=== PATIENT | female | born 1945 | race Caucasian/White ===

== ENCOUNTER → 2016-07-17 | Outpatient (CLI) | payer MEDICARE, OTHER ==
[2016-07-17 12:31] LABS: APPEARANCE,URINE SLIGHTLY-CLOUDY; BILIRUBIN,URINE NEGATIVE (NEGATIVE); GLUCOSE, URINE NEGATIVE (NEGATIVE); KETONES,URINE NEGATIVE (NEGATIVE); LEUKOCYTE ESTERASE,URINE NEGATIVE (NEGATIVE); NITRITE,URINE NEGATIVE (NEGATIVE); PROTEIN,URINE NEGATIVE (NEGATIVE); URINE SPECIFIC GRAVITY 1.009; UROBILINOGEN,URINE NEGATIVE mg/dL (<2.0)
[2016-07-17 13:00] LABS: ABSOLUTE EOSINOPHILS # (AUTO) 0.3 10^3/uL (0.0-0.6); ABSOLUTE LYMPHOCYTES (AUTO) 1.2 10^3/uL (0.5-4.7); ABSOLUTE MONOCYTES (AUTO) 0.7 10^3/uL (0.1-1.4); BASOPHILS % (AUTO) 0.6 % (0-2); EOSINOPHILS % (AUTO) 3.4 % (0-6); HEMATOCRIT 39.7 % (36.0-47.0); HEMOGLOBIN 13.3 g/dL (12.0-15.5); HGB HCT DIFFERENCE 0.2; LYMPHOCYTES % (AUTO) 14.8 % (13-45); MEAN CORPUSCULAR HEMOGLOBIN 30.6 pg (27.0-33.4); MEAN CORPUSCULAR HGB CONC 33.4 g/dL (32.0-36.0); MEAN CORPUSCULAR VOLUME 92 fl (80-97); RED BLOOD COUNT 4.33 10^6/uL (3.72-5.28); RED CELL DISTRIBUTION WIDTH 14.2 % (11.5-14.0); SEGMENTED NEUTROPHILS % (AUTO) 73.2 % (42-78); WHITE BLOOD COUNT 8.2 10^3/uL (4.0-10.5)
[2016-07-17 13:22] LABS: ANION GAP 9 (5-19); BLOOD UREA NITROGEN 26 mg/dL (7-20); CALCIUM 8.8 mg/dL (8.4-10.2); CARBON DIOXIDE 28 mmol/L (22-30); CHLORIDE 91 mmol/L (98-107); GLUCOSE 59 mg/dL (75-110); POTASSIUM 4.4 mmol/L (3.6-5.0); SODIUM 127.6 mmol/L (137-145)
--- NOTE | 2016-07-17 16:57 | EKG REPORT ---
SEVERITY:- ABNORMAL ECG - SINUS RHYTHM NONSPECIFIC INTRAVENTRICULAR CONDUCTION DELAY PROBABLE LEFT VENTRICULAR HYPERTROPHY INFERIOR INFARCT, OLD : Confirmed by: Junie Royal MD 17-Jul-2016 16:57:15
== END ==
LOC: OD 11:16
PROVIDERS: ATTEND Orthopaedic Surgery
DX: Z01.810 Encounter for preprocedural cardiovascular examination (principal); Z01.811 Encounter for preprocedural respiratory examination; Z01.812 Encounter for preprocedural laboratory examination; Z01.818 Encounter for other preprocedural examination
CPT/HCPCS: 36415; 71020; 80048; 81001; 85025; 93005; 93010

== ENCOUNTER → 2016-08-07 | Outpatient (CLI) | payer MEDICARE, OTHER ==
[2016-08-07 11:53] LABS: ANION GAP 12 (5-19); BLOOD UREA NITROGEN 22 mg/dL (7-20); CALCIUM 9.1 mg/dL (8.4-10.2); CARBON DIOXIDE 23 mmol/L (22-30); CHLORIDE 101 mmol/L (98-107); GLUCOSE 78 mg/dL (75-110); POTASSIUM 4.7 mmol/L (3.6-5.0); SODIUM 136.3 mmol/L (137-145)
== END ==
LOC: LAB 11:03
PROVIDERS: ATTEND Internal Medicine
DX: I10 Essential (primary) hypertension (principal)
CPT/HCPCS: 36415; 80048

== ENCOUNTER 2016-08-13 05:30 | Inpatient (IN) | payer MEDICARE, OTHER ==
[~2016-08-13 05:30] MED LIST: BUPIVACAINE INJ/PF LIPOSOME/PF 266 MG/20 ML SDV INFIL PRN; IBUPROFEN 800 MG in NORMAL SALINE 250 ML IV PRN; LACTATED RINGERS 1000 ML IV PRN; LANSOPRAZOLE 15 MG TAB.RAP.DR PO PRN; OXYCODONE HCL SR 10 MG TABLET PO PRN; SCOPOLAMINE HYDROBROMIDE 1.5 MG PATCH.TD72 TD PRN; VANCOMYCIN HCL 1,000 MG in DEXTROSE 5%-WATER 250 ML IV PRN
[2016-08-13] MEDS ORDERED: MIDAZOLAM 2 MG/2 ML INJ ONE (06:24)
[2016-08-13] MEDS ORDERED: FENTANYL CITRATE INJ/PF 100 MCG/2 ML AMPUL ONE (06:24)
[2016-08-13] MEDS ORDERED: EPHEDRINE SULFATE INJ 50 MG/1 ML AMPULE ONE ×2 (06:24→06:25)
[2016-08-13] MEDS ORDERED: TRANEXAMIC ACID INJ/PF 1,000 MG/10 ML SDV IV ONE ×2 (06:25→11:00)
[2016-08-13] MEDS ORDERED: PROPOFOL INJ 200 MG/20 ML VIAL IV ONE (06:25)
[2016-08-13] MEDS ORDERED: CEFAZOLIN INJ 1 GM VIAL ONE (06:33)
[2016-08-13] MEDS ORDERED: BUPIVACAINE INJ/PF LIPOSOME/PF 266 MG/20 ML SDV ONE (06:46)
[2016-08-13] MEDS ORDERED: THROMBIN (BOVINE) 5000 UNIT EPITAXIS KIT ONE (06:46)
[2016-08-13] MEDS ORDERED: THROMBIN (BOVINE) TOPICAL 20000 UNIT VIAL ONE (06:46)
[2016-08-13] MEDS ORDERED: FENTANYL CITRATE INJ/PF 100 MCG/2 ML AMPUL IV PRN ×3 (07:57)
[2016-08-13] MEDS ORDERED: MORPHINE SULFATE 10 MG/ML INJ IV PRN ×4 (07:57→08:25)
[2016-08-13] MEDS ORDERED: OXYCODONE-ACETAMINOPHEN 5-325 MG TABLET PO PRN ×2 (07:57)
[2016-08-13] MEDS ORDERED: PROMETHAZINE HCL INJ 25 MG/1 ML VIAL IV PRN ×2 (07:57)
[2016-08-13] MEDS ORDERED: MEPERIDINE HCL/PF INJ 25 MG/1 ML DISP.SYRIN IV PRN (07:57)
[2016-08-13] MEDS ORDERED: DIPHENHYDRAMINE HCL 50 MG/ML VIAL IV PRN ×2 (07:57→08:25)
--- NOTE | 2016-08-13 08:10 | EKG REPORT ---
SEVERITY:- ABNORMAL ECG - SINUS RHYTHM INFERIOR INFARCT, AGE INDETERMINATE ANTEROLATERAL INFARCT, AGE INDETERMINATE : Confirmed by: Jaspreet Champion MD 13-Aug-2016 08:10:06
[2016-08-13] MEDS ORDERED: ONDANSETRON 4 MG TAB.RAPDIS PO PRN (08:25)
[2016-08-13] MEDS ORDERED: ACETAMINOPHEN 325 MG TABLET PO PRN (08:25)
[2016-08-13] MEDS ORDERED: MORPHINE SULFATE 10 MG/ML INJ IM PRN (08:25)
[2016-08-13] MEDS ORDERED: MAG HYDROX/AL HYDROX/SIMETH SUSP 30 ML UDCUP PO PRN (08:25)
[2016-08-13] MEDS ORDERED: ONDANSETRON HCL INJ/PF 4 MG/2 ML SDV IV PRN (08:25)
[2016-08-13] MEDS ORDERED: ZOLPIDEM TARTRATE 5 MG TABLET PO PRN (08:25)
[2016-08-13] MEDS ORDERED: RINGERS SOLUTION,LACTATED 1,000 ML IV PRN (08:25)
--- NOTE | 2016-08-13 08:33 | Operative Report ---
Operative Report DATE OF SURGERY: 08/13/16 PREOPERATIVE DIAGNOSIS: l knee oa OPERATION: Left knee arthroplasty SURGEON: RISHI BIRD ANESTHESIA: Spinal TISSUE REMOVED OR ALTERED: Bone to pathology ESTIMATED BLOOD LOSS: 100 PROCEDURE: Implants used: Femur: Striker triathlon #5 CR femur Tibia:, 4 tibia Tibial liner: 9 Millimeter CS insert Patella:, 29 mm oval patella Procedure with the patient supine on the operating table the left the limb is prepped and draped in a sterile fashion. The limb was elevated for exsanguination and the tourniquet inflated to 280 torr. A standard midline median parapatellar approach the knee is taken. Access is gained to the femoral canal through the intercondylar notch. Intramedullary alignment instrumentation used to resect 10 mm of distal femur in 5 of valgus. Sizing guide indicated a size 5 femur. Appropriate cutting jig is then used to fashion anterior posterior and chamfer cuts. A trial reduction femurs performed and this is judged to be adequate. Attention was next turned to the tibia. Using an extra medullary alignment system 9 millimeters was resected off the lateral tibial plateau. This is sized to a size for tibia. A trial reduction was now performed with a 5 femur and a 4 tibia using a 9 millimeters spacer. It is full extension and central patellofemoral tracking. The articular surface the patella was next resected using an oscillating saw. All trial implants were removed. Polymethylmethacrylate is mixed and used to cement the above implants in place. On adequate curing the cement excess cement was removed the tourniquet was deflated hemostasis obtained the wound is then closed in layers using interrupted Vicryl followed by krupa. A sterile compressive dressing was applied and the patient returned to recovery room in satisfactory condition.
[2016-08-13] MEDS ORDERED: DIPHENHYDRAMINE HCL 25 MG CAPSULE PO PRN (09:19)
[2016-08-13] MEDS ORDERED: VALSARTAN 160 MG TABLET PO SCH (10:00)
[2016-08-13] MEDS: OXYCODONE HCL SR 10 MG TABLET PO SCH ×2 (12:16→22:17)
[2016-08-13] MEDS: ASCORBIC ACID 500 MG TABLET PO SCH (12:16)
[2016-08-13] MEDS: PRENATAL VITAMIN W-O CA NO5/FE FUMARATE/FA CAPSULE PO SCH (12:16)
[2016-08-13] MEDS ORDERED: PAROXETINE HCL 20 MG TABLET PO ONE (14:00)
[2016-08-13] MEDS ORDERED: ONDANSETRON HCL INJ/PF 4 MG/2 ML SDV ONE (14:33)
[2016-08-13] MEDS ORDERED: PHENYLEPHRINE HCL INJ/PF 10 MG/1 ML SDV ONE (14:33)
[2016-08-13] MEDS ORDERED: DEXAMETHASONE SOD PHOSPHATE INJ 4 MG/1 ML VIAL ONE (14:33)
[2016-08-13] MEDS ORDERED: LIDOCAINE 2% INJ-PF (20 MG/ML) 10 ML AMPUL ONE (14:33)
[2016-08-13] MEDS: NEBIVOLOL HCL 10 MG TABLET PO SCH (17:19)
[2016-08-13] MEDS: SENNOSIDES/DOCUSATE 8.6-50 MG 1 EACH TABLET PO SCH (17:35)
[2016-08-13] MEDS: PREGABALIN 75 MG CAPSULE PO SCH (17:35)
[2016-08-13] MEDS: IBUPROFEN 800 MG in NORMAL SALINE 250 ML IV SCH (17:36)
[2016-08-13] MEDS: NORTRIPTYLINE HCL 10 MG CAPSULE PO SCH (17:36)
[2016-08-13] MEDS: TOPIRAMATE 25 MG TABLET PO SCH (17:36)
[2016-08-13] MEDS ORDERED: LORAZEPAM 1 MG TABLET PO SCH (18:00)
[2016-08-13] MEDS ORDERED: SOMATROPIN SQ SCH (18:00)
[2016-08-13] MEDS ORDERED: VANCOMYCIN HCL 1,000 MG in DEXTROSE 5%-WATER 250 ML IV ONE (20:25)
[2016-08-13] MEDS ORDERED: (PENDING PHARMACY ID) (Doxepin Hcl [Silenor] 6 MG) PO SCH (22:00)
[2016-08-13] MEDS: VALSARTAN 160 MG TABLET PO SCH (22:17)
[2016-08-13] MEDS: RIVAROXABAN 10 MG TABLET PO SCH (22:17)
[2016-08-14] MEDS: IBUPROFEN 800 MG in NORMAL SALINE 250 ML IV SCH ×3 (02:13→17:29)
[2016-08-14 05:26] LABS: HEMATOCRIT 32.5 % (36.0-47.0); HGB HCT DIFFERENCE 0.5; MEAN CORPUSCULAR HEMOGLOBIN 31.7 pg (27.0-33.4); MEAN CORPUSCULAR VOLUME 93 fl (80-97); RED BLOOD COUNT 3.48 10^6/uL (3.72-5.28); RED CELL DISTRIBUTION WIDTH 13.8 % (11.5-14.0); WHITE BLOOD COUNT 10.6 10^3/uL (4.0-10.5)
[2016-08-14] MEDS: LANSOPRAZOLE 30 MG TAB.RAP.DR PO SCH (05:33)
[2016-08-14 05:36] LABS: ANION GAP 10 (5-19); BLOOD UREA NITROGEN 29 mg/dL (7-20); CALCIUM 8.6 mg/dL (8.4-10.2); CARBON DIOXIDE 23 mmol/L (22-30); CHLORIDE 103 mmol/L (98-107); CREATININE RESULT 1.62 mg/dL (0.52-1.25); GLUCOSE 103 mg/dL (75-110); POTASSIUM 4.6 mmol/L (3.6-5.0); SODIUM 135.5 mmol/L (137-145)
--- NOTE | 2016-08-14 06:51 | PDOC PROGRESS REPORT ---
Subjective Progress Note for:: 08/14/16 Subjective:: Patient denies any discomfort. She's trying to use just IV ibuprofen as opposed to narcotics Physical Exam Vital Signs: Temp Pulse Resp BP Pulse Ox 37.1 C 73 20 109/52 L 94 08/14/16 04:05 08/14/16 04:05 08/14/16 04:05 08/14/16 04:05 08/14/16 04:05 Intake & Output 08/12/16 08/13/16 08/14/16 06:59 06:59 06:59 Intake Total 0 3804 Output Total 2400 Balance 0 1404 General appearance: PRESENT: no acute distress Head exam: PRESENT: normocephalic Eye exam: PRESENT: EOMI Respiratory exam: PRESENT: unlabored Cardiovascular exam: PRESENT: RRR Pulses: PRESENT: +1 pedal pulses bilateral Vascular exam: PRESENT: normal capillary refill GI/Abdominal exam: PRESENT: soft Extremities exam: PRESENT: other - Lower extremity dressing clean dry and intact. Distal neurovascular examinations intact. Neurological exam: PRESENT: alert, awake, oriented to person, oriented to place , oriented to time, oriented to situation. ABSENT: motor sensory deficit Results Laboratory Results: 08/14/16 05:01 08/14/16 05:01 08/14/16 08/14/16 05:01 05:01 WBC 10.6 H RBC 3.48 L Hgb 11.0 L Hct 32.5 L MCV 93 MCH 31.7 MCHC 34.0 RDW 13.8 Plt Count 159 Sodium 135.5 L Potassium 4.6 Chloride 103 Carbon Dioxide 23 Anion Gap 10 BUN 29 H Creatinine 1.62 H Est GFR ( Amer) 38 L Est GFR (Non-Af Amer) 32 L Glucose 103 Calcium 8.6 Impressions: Knee X-Ray 08/13/16 08:26 IMPRESSION: Postop left knee as noted above. . Status: Imported from PACS Assessment & Plan - Diagnosis (1) Arthritis of left knee Is this a current diagnosis for this admission?: YesPlan: 70-year-old white female postop day 1 from left total knee arthroplasty. At this point she's comfortable. OxyContin will be discontinued. Patient will be mobilized with physical therapy. - Time Time Spent with patient: 15-24 minutes Critical Time spent with patient: 15-24 minutes Anticipated discharge: Home with Homehealth Within: within 24 hours
[2016-08-14] MEDS: AMLODIPINE BESYLATE 2.5 MG TABLET PO SCH (07:49)
[2016-08-14] MEDS: LORATADINE 10 MG TABLET PO SCH (07:50)
[2016-08-14] MEDS: LEVOTHYROXINE SODIUM 0.025 MG TABLET PO SCH (07:50)
[2016-08-14] MEDS: OXYCODONE HCL IR 5 MG TABLET PO PRN ×4 (07:51→21:22)
[2016-08-14] MEDS: LEVOTHYROXINE SODIUM 0.112 MG TABLET PO SCH (07:51)
[2016-08-14] MEDS: PAROXETINE HCL 20 MG TABLET PO SCH (07:51)
[2016-08-14] MEDS ORDERED: OMEPRAZOLE PO SCH (08:00)
[2016-08-14] MEDS ORDERED: BENFOTIAMINE PO SCH (08:00)
[2016-08-14] MEDS ORDERED: (PENDING PHARMACY ID) (Levothyroxine Sodium [Synthroid] 137 MCG) PO SCH (08:00)
[2016-08-14] MEDS ORDERED: LORATADINE 5 MG PO SCH (08:00)
[2016-08-14] MEDS ORDERED: SODIUM BICARBONATE PO SCH (08:00)
[2016-08-14] MEDS: VALSARTAN 160 MG TABLET PO SCH (10:19)
[2016-08-14] MEDS: PRENATAL VITAMIN W-O CA NO5/FE FUMARATE/FA CAPSULE PO SCH (10:20)
[2016-08-14] MEDS: ASCORBIC ACID 500 MG TABLET PO SCH (10:20)
[2016-08-14] MEDS: PREGABALIN 75 MG CAPSULE PO SCH ×2 (10:44→17:32)
[2016-08-14] MEDS: SENNOSIDES/DOCUSATE 8.6-50 MG 1 EACH TABLET PO SCH ×2 (10:44→17:31)
[2016-08-14] MEDS ORDERED: OXYCODONE HCL IR 5 MG TABLET PO SCH (14:00)
[2016-08-14] MEDS: NORTRIPTYLINE HCL 10 MG CAPSULE PO SCH (17:30)
[2016-08-14] MEDS: TOPIRAMATE 25 MG TABLET PO SCH (17:31)
[2016-08-14] MEDS: NEBIVOLOL HCL 10 MG TABLET PO SCH (17:31)
[2016-08-14] MEDS: RIVAROXABAN 10 MG TABLET PO SCH (21:22)
[2016-08-14] MEDS ORDERED: LORAZEPAM 1 MG TABLET PO SCH (22:00)
[2016-08-15] MEDS: VALSARTAN 160 MG TABLET PO SCH ×3 (00:38→23:10)
[2016-08-15] MEDS: IBUPROFEN 800 MG in NORMAL SALINE 250 ML IV SCH ×2 (02:40→09:40)
[2016-08-15] MEDS: LANSOPRAZOLE 30 MG TAB.RAP.DR PO SCH (05:46)
--- NOTE | 2016-08-15 07:14 | PDOC DISCHARGE SUMMARY ---
General - Admit/Disc Date/PCP Admission Date/Primary Care Provider: 08/13/16 05:30 GIL HADDAD MD Discharge Date: 08/15/16 - Discharge Diagnosis (1) Arthritis of left knee Is this a current diagnosis for this admission?: Yes - Additional Information Resuscitation Status: Full Code Discharge Diet: As Tolerated Discharge Activity: Balance Activity w/Rest Home Medications: Omeprazole/Sodium Bicarbonate [Zegerid 40 mg Capsule] 40 mg PO QAM 04/29/12 Pregabalin [Lyrica 75 mg Capsule] 150 mg PO BID 04/29/12 Topiramate [Topamax] 50 mg PO QPM 04/29/12 Nebivolol HCl [Bystolic] 10 mg PO QPM 08/29/12 Doxepin HCl [Silenor] 6 mg PO QHS 11/16/12 Solifenacin Succinate [Vesicare] 5 mg PO QAM 11/16/12 Aspirin [Ecotrin] 81 mg PO QAM 05/12/14 Calcium Citrate/Vitamin D3 [Citracal + D Maximum Caplet] 1 tab PO DAILY Levothyroxine Sodium [Synthroid] 137 mcg PO QAM 11/12/15 Lorazepam 2 mg PO QPM 11/12/15 Valsartan 160 mg PO BID 11/12/15 Amlodipine Besylate [Norvasc 2.5 mg Tablet] 2.5 mg PO QAM 07/31/16 Ascorbic Acid [Vitamin C 500 mg Tablet] 500 mg PO DAILY 07/31/16 Benfotiamine 500 mg PO QAM 07/31/16 Ketorolac Tromethamine [Toradol 10 mg Tablet] 10 mg PO Q6 PRN MDD 50mg 07/31/16 Linaclotide [Linzess 145 Mcg Capsule] 145 - 290 mcg PO QAM 07/31/16 Loratadine [Claritin] 5 mg PO QAM 07/31/16 Naproxen Sodium [Aleve] 220 mg PO BID 07/31/16 Nortriptyline HCl [Pamelor 10 mg Capsule] 40 mg PO QPM 07/31/16 Onabotulinumtoxina [Botox] 200 unit IJ ASDIR PRN 07/31/16 Onabotulinumtoxina [Botox] 200 unit IJ ASDIR PRN 07/31/16 Paroxetine HCl [Paxil] 40 mg PO QAM 07/31/16 Somatropin [Genotropin] 0.375 mg SQ QPM 07/31/16 Oxycodone HCl [Oxy-Ir 5 mg Tablet] 5 mg PO Q4HP PRN #0 tablet 08/15/16 Rivaroxaban [Xarelto 10 mg Tablet] 10 mg PO QHS #0 tablet 08/15/16 History of Present Illness History of Present Illness: JIGNA SALEH is a 70 year old female who presents with progressive left knee pain and functional disability secondary osteoarthritis. She's admitted for an elective left knee arthroplasty. Hospital Course Hospital Course: The patient's admitted through the operating room where she undergoes an uncomplicated left knee arthroplasty. She's returned to floor in satisfactory condition. She's seen by physical therapy and begun on a weightbearing as tolerated toward program. She makes excellent progress in this regard. Dressing is changed on postop day 2. Wound is clean dry and intact. She so. For discharge home with home health nursing, home health physical therapy, we will corrine Cotter. Physical Exam Vital Signs: Temp Pulse Resp BP Pulse Ox 36.9 C 72 19 116/52 L 92 08/15/16 03:25 08/15/16 03:25 08/15/16 03:25 08/15/16 03:25 08/15/16 03:25 Intake & Output 08/14/16 08/15/16 08/16/16 06:59 06:59 06:59 Intake Total 3804 3508 Output Total 2400 Balance 1404 3508 General appearance: PRESENT: no acute distress Head exam: PRESENT: normocephalic Respiratory exam: PRESENT: unlabored Cardiovascular exam: PRESENT: RRR Vascular exam: PRESENT: normal capillary refill GI/Abdominal exam: PRESENT: soft Rectal exam: PRESENT: deferred Extremities exam: PRESENT: other - Left knee wound is clean dry and intact. Distal neurovascular examinations intact. Neurological exam: PRESENT: alert, awake, oriented to person, oriented to place , oriented to time, oriented to situation, CN II-XII grossly intact. ABSENT: motor sensory deficit Psychiatric exam: PRESENT: appropriate affect, normal mood. ABSENT: homicidal ideation, suicidal ideation Results Laboratory Results: 08/14/16 05:01 08/14/16 05:01 Impressions: Knee X-Ray 08/13/16 08:26 IMPRESSION: Postop left knee as noted above. . Status: Imported from PACS Qualifiers PATEINT BEING DISCHARGED WITH ANY OF THE FOLLOWING DIAGNOSIS?: No VTE patient discharged on overlapping Therapy?: Yes Plan Discharge Plan: Patient to be discharged home with home health nursing, home health physical therapy, we'll Walker, bedside commode. Follow-up will be with Dr. Amin in his [facility] for surgery in approximately 2 weeks for staple removal. Time Spent: Less than 30 Minutes
[2016-08-15] MEDS: AMLODIPINE BESYLATE 2.5 MG TABLET PO SCH (07:19)
[2016-08-15] MEDS: OXYCODONE HCL IR 5 MG TABLET PO PRN (07:20)
[2016-08-15] MEDS: LEVOTHYROXINE SODIUM 0.025 MG TABLET PO SCH (07:20)
[2016-08-15] MEDS: PAROXETINE HCL 20 MG TABLET PO SCH (07:20)
[2016-08-15] MEDS: LORATADINE 10 MG TABLET PO SCH (07:20)
[2016-08-15] MEDS: LEVOTHYROXINE SODIUM 0.112 MG TABLET PO SCH (07:20)
[2016-08-15 07:39] LABS: HEMATOCRIT 33.1 % (36.0-47.0); HEMOGLOBIN 11.2 g/dL (12.0-15.5); HGB HCT DIFFERENCE 0.5; MEAN CORPUSCULAR HEMOGLOBIN 31.7 pg (27.0-33.4); MEAN CORPUSCULAR HGB CONC 33.8 g/dL (32.0-36.0); MEAN CORPUSCULAR VOLUME 94 fl (80-97); RED BLOOD COUNT 3.53 10^6/uL (3.72-5.28); RED CELL DISTRIBUTION WIDTH 14.1 % (11.5-14.0); WHITE BLOOD COUNT 8.5 10^3/uL (4.0-10.5)
[2016-08-15] MEDS: ASCORBIC ACID 500 MG TABLET PO SCH (09:38)
[2016-08-15] MEDS: PREGABALIN 75 MG CAPSULE PO SCH ×2 (09:38→17:09)
[2016-08-15] MEDS: PRENATAL VITAMIN W-O CA NO5/FE FUMARATE/FA CAPSULE PO SCH (09:38)
[2016-08-15] MEDS: SENNOSIDES/DOCUSATE 8.6-50 MG 1 EACH TABLET PO SCH ×2 (09:39→17:23)
[2016-08-15] MEDS ORDERED: TRAMADOL HCL 50 MG TABLET PO PRN (15:16)
[2016-08-15] MEDS: NORTRIPTYLINE HCL 10 MG CAPSULE PO SCH (17:09)
[2016-08-15] MEDS: TOPIRAMATE 25 MG TABLET PO SCH (17:23)
[2016-08-15] MEDS: NEBIVOLOL HCL 10 MG TABLET PO SCH (17:23)
[2016-08-15] MEDS: RIVAROXABAN 10 MG TABLET PO SCH (23:12)
[2016-08-16] MEDS: LANSOPRAZOLE 30 MG TAB.RAP.DR PO SCH (05:53)
--- NOTE | 2016-08-16 06:59 | PDOC PROGRESS REPORT ---
Subjective Progress Note for:: 08/16/16 Subjective:: Patient alert oriented and appropriate. This morning Physical Exam Vital Signs: Temp Pulse Resp BP Pulse Ox 37.1 C 83 19 120/53 L 96 08/16/16 00:00 08/16/16 00:44 08/16/16 00:44 08/16/16 00:00 08/16/16 00:44 Intake & Output 08/14/16 08/15/16 08/16/16 06:59 06:59 06:59 Intake Total 3804 3508 881 Output Total 2400 Balance 1404 3508 881 Results Laboratory Results: 08/15/16 06:19 08/14/16 05:01 08/15/16 06:19 WBC 8.5 RBC 3.53 L Hgb 11.2 L Hct 33.1 L MCV 94 MCH 31.7 MCHC 33.8 RDW 14.1 H Plt Count 157 Impressions: Knee X-Ray 08/13/16 08:26 IMPRESSION: Postop left knee as noted above. . Assessment & Plan - Diagnosis (1) Arthritis of left knee Is this a current diagnosis for this admission?: YesPlan: Patient's discharge was held yesterday because of oversedation. This has cleared. She subsequently for discharge today. - Time Time Spent with patient: 15-24 minutes Anticipated discharge: Home with Homehealth Within: within 24 hours
[2016-08-16 07:19] LABS: HEMATOCRIT 33.5 % (36.0-47.0); HEMOGLOBIN 11.3 g/dL (12.0-15.5); HGB HCT DIFFERENCE 0.4; MEAN CORPUSCULAR HEMOGLOBIN 31.1 pg (27.0-33.4); MEAN CORPUSCULAR HGB CONC 33.7 g/dL (32.0-36.0); MEAN CORPUSCULAR VOLUME 92 fl (80-97); RED BLOOD COUNT 3.63 10^6/uL (3.72-5.28); RED CELL DISTRIBUTION WIDTH 14.3 % (11.5-14.0); WHITE BLOOD COUNT 9.2 10^3/uL (4.0-10.5)
[2016-08-16 08:19] VITALS: BP 132/62
[2016-08-16] MEDS: PAROXETINE HCL 20 MG TABLET PO SCH (08:21)
[2016-08-16] MEDS: LORATADINE 10 MG TABLET PO SCH (08:21)
[2016-08-16] MEDS: LEVOTHYROXINE SODIUM 0.112 MG TABLET PO SCH (08:21)
[2016-08-16] MEDS: LEVOTHYROXINE SODIUM 0.025 MG TABLET PO SCH (08:22)
[2016-08-16] MEDS: AMLODIPINE BESYLATE 2.5 MG TABLET PO SCH (08:22)
== END 2016-08-16 08:45 | disposition home health service (06) | DRG 470 ==
LOC: INOR 05:30 → 4S 10:41
PROVIDERS: ADMIT Orthopaedic Surgery; ATTEND Orthopaedic Surgery
PROC: 0SRD0J9 Replacement of Left Knee Joint with Synthetic Substitute, Cemented, Open Approach (ICD-10-PCS; principal; 2016-08-13 07:30)
DX: M17.12 Unilateral primary osteoarthritis, left knee (principal); I10 Essential (primary) hypertension; G43.909 Migraine, unspecified, not intractable, without status migrainosus; D64.9 Anemia, unspecified; T50.905A Adverse effect of unspecified drugs, medicaments and biological substances, initial encounter; Y92.239 Unspecified place in hospital as the place of occurrence of the external cause; Z79.82 Long term (current) use of aspirin; Z79.899 Other long term (current) drug therapy; Z82.49 Family history of ischemic heart disease and other diseases of the circulatory system; Z86.73 Personal history of transient ischemic attack (TIA), and cerebral infarction without residual deficits
CPT/HCPCS: 01402; 36415; 80048; 85027; 88305; 88311; 93005; 93010; 94799; C9290; G8978-GP; G8979-GP; G8987-GO; G8988-GO; J0690; J1100; J1200; J1741; J2250; J2370; J2405; J2704; J3010; J3370; J3490; J7050; J7060

== ENCOUNTER 2017-07-31 05:29 | Day surgery (SDC) | payer MEDICARE, OTHER ==
[2017-07-24 10:54] LABS: ABSOLUTE BASOPHILS # (AUTO) 0.1 10^3/uL (0.0-0.2); ABSOLUTE EOSINOPHILS # (AUTO) 0.2 10^3/uL (0.0-0.6); ABSOLUTE LYMPHOCYTES (AUTO) 1.1 10^3/uL (0.5-4.7); ABSOLUTE MONOCYTES (AUTO) 0.4 10^3/uL (0.1-1.4); ABSOLUTE NEUT (AUTO) 4.9 10^3/uL (1.7-8.2); EOSINOPHILS % (AUTO) 3.2 % (0-6); HEMATOCRIT 41.9 % (36.0-47.0); HEMOGLOBIN 14.3 g/dL (12.0-15.5); LYMPHOCYTES % (AUTO) 16.8 % (13-45); MEAN CORPUSCULAR HEMOGLOBIN 30.4 pg (27.0-33.4); MEAN CORPUSCULAR VOLUME 89 fl (80-97); MONOCYTES % (AUTO) 6.7 % (3-13); PLATELET COUNT 207 10^3/uL (150-450); RED CELL DISTRIBUTION WIDTH 13.2 % (11.5-14.0); SEGMENTED NEUTROPHILS % (AUTO) 72.3 % (42-78); TOTAL CELLS COUNTED % (AUTO) 100 %; WHITE BLOOD COUNT 6.7 10^3/uL (4.0-10.5)
[2017-07-24 11:00] LABS: APPEARANCE,URINE CLEAR; BILIRUBIN,URINE NEGATIVE (NEGATIVE); COLOR,URINE YELLOW; GLUCOSE, URINE NEGATIVE (NEGATIVE); KETONES,URINE NEGATIVE (NEGATIVE); LEUKOCYTE ESTERASE,URINE NEGATIVE (NEGATIVE); NITRITE,URINE NEGATIVE (NEGATIVE); PROTEIN,URINE NEGATIVE (NEGATIVE); URINE SPECIFIC GRAVITY 1.012; UROBILINOGEN,URINE NEGATIVE mg/dL (<2.0)
[2017-07-24 11:24] LABS: ANION GAP 9 (5-19); BLOOD UREA NITROGEN 22 mg/dL (7-20); CALCIUM 9.5 mg/dL (8.4-10.2); CARBON DIOXIDE 27 mmol/L (22-30); CHLORIDE 103 mmol/L (98-107); GLUCOSE 62 mg/dL (75-110); POTASSIUM 4.1 mmol/L (3.6-5.0); SODIUM 139.3 mmol/L (137-145)
--- NOTE | 2017-07-24 23:10 | EKG REPORT ---
SEVERITY:- ABNORMAL ECG - SINUS RHYTHM NONSPECIFIC INTRAVENTRICULAR CONDUCTION DELAY PROBABLE INFERIOR INFARCT, AGE INDETERMINATE CONSIDER ANTERIOR INFARCT : Confirmed by: Gilberto Wray 24-Jul-2017 23:09:04
--- NOTE | 2017-07-26 13:17 | RADIOLOGY REPORT (SQ) ---
EXAM DESCRIPTION: CHEST PA/LATERAL COMPLETED DATE/TIME: 07/26/2017 12:35 pm REASON FOR STUDY: PRE-OP M23.205 DERANG OF UNSP MEDIAL MENSC DUE TO OLD TEAR/INJ, UNS COMPARISON: 07/17/2016 NUMBER OF VIEWS: Two view. TECHNIQUE: Frontal and lateral radiographic views of the chest acquired. LIMITATIONS: None. FINDINGS: LUNGS AND PLEURA: No opacities, masses or pneumothorax. No pleural effusion. MEDIASTINUM AND HILAR STRUCTURES: No masses. No contour abnormalities. HEART AND VASCULAR STRUCTURES: Heart enlarged without failure. Aorta normal for age. BONES: No acute findings. HARDWARE: None in the chest. OTHER: No other significant finding. IMPRESSION: No acute abnormality in the chest. TECHNICAL DOCUMENTATION: JOB ID: [id number] [email or web address]- All Rights Reserved
[~2017-07-31 05:29] MED LIST changes: -BUPIVACAINE INJ/PF LIPOSOME/PF 266 MG/20 ML SDV INFIL PRN; +CEFAZOLIN 2 GM/D5W RTU 2 GM/50 ML RTUPB IV PRN; -IBUPROFEN 800 MG in NORMAL SALINE 250 ML IV PRN; -LANSOPRAZOLE 15 MG TAB.RAP.DR PO PRN; +LIDOCAINE 0.5% INJ-PF (5 MG/ML) 50 ML SDV SUBCUT PRN; -OXYCODONE HCL SR 10 MG TABLET PO PRN; -SCOPOLAMINE HYDROBROMIDE 1.5 MG PATCH.TD72 TD PRN; -VANCOMYCIN HCL 1,000 MG in DEXTROSE 5%-WATER 250 ML IV PRN
[2017-07-31] MEDS ORDERED: FENTANYL CITRATE INJ/PF 100 MCG/2 ML AMPUL ONE (07:13)
[2017-07-31] MEDS ORDERED: PROPOFOL INJ 200 MG/20 ML VIAL IV ONE (07:13)
[2017-07-31] MEDS ORDERED: MIDAZOLAM 2 MG/2 ML INJ ONE (07:13)
[2017-07-31] MEDS ORDERED: KETAMINE HCL INJ 500 MG/10 ML VIAL ONE (07:14)
[2017-07-31] MEDS ORDERED: LIDOCAINE 1%/EPINEPHRINE INJ 20 ML VIAL ONE (07:16)
[2017-07-31] MEDS ORDERED: BUPIVACAINE HCL 0.5 % INJ/PF 30 ML SDV ONE (07:17)
[2017-07-31] MEDS ORDERED: MORPHINE SULFATE 10 MG/ML INJ IV PRN (07:52)
[2017-07-31] MEDS ORDERED: FENTANYL CITRATE INJ/PF 100 MCG/2 ML AMPUL IV PRN ×3 (07:52)
[2017-07-31] MEDS ORDERED: OXYCODONE-ACETAMINOPHEN 5-325 MG TABLET PO PRN ×2 (07:52)
[2017-07-31] MEDS ORDERED: MEPERIDINE HCL/PF INJ 25 MG/1 ML DISP.SYRIN IV PRN (07:52)
[2017-07-31] MEDS ORDERED: DIPHENHYDRAMINE HCL 50 MG/ML VIAL IV PRN ×2 (07:52→08:40)
[2017-07-31] MEDS ORDERED: PROMETHAZINE HCL INJ 25 MG/1 ML VIAL IV PRN ×2 (07:52)
--- NOTE | 2017-07-31 08:03 | Operative Report ---
Operative Report DATE OF SURGERY: 07/31/17 PREOPERATIVE DIAGNOSIS: Right medial meniscal tear POSTOPERATIVE DIAGNOSIS: Right medial meniscal tear. 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 Intact ACL. Right lateral meniscal tear. Grade IV chondromalacia lateral compartment, lateral tibial plateau. Grade 2-3 chondral malacia the patellofemoral compartment OPERATION: Arthroscopic right partial medial and lateral meniscectomy SURGEON: RISHI BIRD ANESTHESIA: LMAC ESTIMATED BLOOD LOSS: Minimal PROCEDURE: With the patient supine on the operative table the right lower extremities prepped and draped in sterile fashion. The knee is insufflated with combination of Marcaine, Xylocaine, and epinephrine. Subsequent medial lateral infrapatellar portals are created for the introduction of arthroscope and debridement instrumentation. The joint is examined in systematic fashion findings as above. A partial medial meniscectomy performed from approximately 3 :00 to 12:00 in the face of the dial. Partial lateral meniscectomy performed from approximately 7:00 to 12:00 on the face of the dial. The joint is again examined in systematic fashion with no new findings. Instrumentation was removed. Portals reapproximated interrupted nylon. A sterile compressive dressings applied. The patient returned to PACU in satisfactory condition.
[2017-07-31] MEDS ORDERED: ONDANSETRON 4 MG TAB.RAPDIS SL PRN (08:49)
[2017-07-31] MEDS ORDERED: HYDROCODONE/ACETAMINOPHEN 5-325 MG TABLET PO PRN (08:49)
[2017-07-31 10:33] VITALS: BP 163/88
== END 2017-07-31 09:55 | disposition home or self-care (01) ==
LOC: OROUT 05:29
PROVIDERS: ATTEND Orthopaedic Surgery
PROC: 0SBC4ZZ Excision of Right Knee Joint, Percutaneous Endoscopic Approach (ICD-10-PCS; 2017-07-31)
PROC: 0SBC4ZZ Excision of Right Knee Joint, Percutaneous Endoscopic Approach (ICD-10-PCS; principal; 2017-07-31 07:30)
DX: M23.205 Derangement of unspecified medial meniscus due to old tear or injury, unspecified knee (principal); M23.200 Derangement of unspecified lateral meniscus due to old tear or injury, right knee; M22.41 Chondromalacia patellae, right knee; M25.562 Pain in left knee; E07.9 Disorder of thyroid, unspecified; D50.9 Iron deficiency anemia, unspecified; G57.00 Lesion of sciatic nerve, unspecified lower limb; G43.909 Migraine, unspecified, not intractable, without status migrainosus; I10 Essential (primary) hypertension; Z86.73 Personal history of transient ischemic attack (TIA), and cerebral infarction without residual deficits; Z88.2 Allergy status to sulfonamides; Z79.82 Long term (current) use of aspirin; Z79.899 Other long term (current) drug therapy
CPT/HCPCS: 93005; 36415; 85025; 80048; 81001; 71046; 93010; 29880; J2250; J3490 ×3; J3010; J2704; J0690; 1400

== ENCOUNTER 2019-03-20 00:38 | Emergency (ER) | payer MEDICARE, OTHER ==
--- NOTE | 2019-03-20 03:17 | ER Document Report ---
ED General - General Chief Complaint: Fall Injury Stated Complaint: FALL,HEAD INJURY Time Seen by Provider: 03/20/19 03:17 Primary Care Provider: GIL HADDAD MD [Primary Care Provider] - Follow up as needed Notes: Patient is a 73-year-old female that presents to the emergency department for chief complaint of head injury. Patient states that she was in her house, and lost her footing and fell backwards and hit her head on a small coffee table. This occurred around 11 PM, she denies any headache associated with it, denies any loss of consciousness. Denies any neck pain, numbness, weakness or tingling. She does take baby aspirin, but no other blood thinners. She states that the reason she fell is that her legs are little bit weak because she has been doing a colonoscopy prep, but states she is not have any focal weakness, and did not have lightheadedness or syncope. She denies any blurred vision, nausea, vomiting, or headache at this time. Past Medical History: Hypertension, hyperlipidemia Past Surgical History: Foot surgery, colonoscopy Social History: Lives at home with , denies tobacco, alcohol or drug use. Family History: Reviewed and noncontributory for presenting illness Allergies: Reviewed, see documented allergy list. REVIEW OF SYSTEMS: Other than noted above, the 12 point review of systems was reviewed with the patient and were negative, all pertinent findings are included in the HPI. PHYSICAL EXAMINATION: Vital signs reviewed, nursing noted reviewed. GENERAL: Well-appearing, well-nourished and in no acute distress. HEAD: 2 cm scalp laceration noted to the right lateral and posterior scalp, no active bleeding at this time, mild scalp hematoma associated with it. No step- off or deformity palpated. EYES: Eyes appear normal, extraocular movements intact, sclera anicteric, conjunctiva are normal. ENT: nares patent, oropharynx clear without exudates. Moist mucous membranes. NECK: Normal range of motion, supple without lymphadenopathy LUNGS: Breath sounds clear to auscultation bilaterally and equal. No wheezes rales or rhonchi. HEART: Regular rate and rhythm without murmurs ABDOMEN: Soft, nontender, normoactive bowel sounds. No rebound, guarding, or rigidity. No masses appreciated. EXTREMITIES: Nontender, good range of motion, no pitting or edema. NEUROLOGICAL: No focal neurological deficits. Moves all extremities spontaneously Motor and sensory grossly intact on exam. PSYCH: Normal mood, normal affect. SKIN: Warm, Dry, normal turgor, no rashes or lesions noted on exposed skin TRAVEL OUTSIDE OF THE [place] IN LAST 30 DAYS: No - Related Data Allergies/Adverse Reactions: clarithromycin [From Biaxin] Allergy (Verified 07/31/17 06:24) ezetimibe [From Zetia] Allergy (Verified 07/31/17 06:24) Migraines, SOB lubiprostone [From Amitiza] Allergy (Verified 07/31/17 06:24) Migraines, SOB Sulfa (Sulfonamide Antibiotics) Allergy (Verified 07/31/17 06:24) Migraines, SOB trimethoprim [From Septra] Allergy (Verified 07/31/17 06:24) Migraines, SOB oxycodone [From Percocet] Adverse Reaction (Verified 07/31/17 06:24) Past Medical History - Social History Smoking Status: Never Smoker Family History: Hypertension, Other - renal failure Patient has suicidal ideation: No Patient has homicidal ideation: No - Past Medical History Cardiac Medical History: Reports: Hx Hypercholesterolemia, Hx Hypertension - ON MEDS Denies: Hx Atrial Fibrillation, Hx Congestive Heart Failure, Hx Coronary Artery Disease, Hx Heart Attack, Hx Peripheral Vascular Disease, Hx Pulmonary Embolism, Hx Heart Murmur Pulmonary Medical History: Reports: Hx Pneumonia - 3-4 YRS AGO Denies: Hx Asthma, Hx Bronchitis, Hx COPD, Hx Respiratory Failure, Hx Sleep Apnea, Hx Tuberculosis Neurological Medical History: Reports: Hx Cerebrovascular Accident - 1X IN 2011, Hx Migraine. Denies: Hx Seizures Endocrine Medical History: Reports: Hx Hypothyroidism. Denies: Hx Graves' Disease, Hx Hyperthyroidism Renal/ Medical History: Denies: Hx End Stage Renal Disease, Hx Kidney Stones, Hx Peritoneal Dialysis Malignancy Medical History: Denies: Hx Leukemia, Hx Lung Cancer GI Medical History: Reports: Hx Gastroesophageal Reflux Disease. Denies: Hx Crohn's Disease, Hx Hiatal Hernia, Hx Irritable Bowel, Hx Liver Failure, Hx Pancreatitis, Hx Ulcer Musculoskeletal Medical History: Reports Hx Arthritis - KNEE, Denies Hx Fibromyalgia, Denies Hx Multiple Sclerosis, Denies Hx Muscular Dystrophy, Denies Hx Systemic Lupus Erythematosus Psychiatric Medical History: Reports: Hx Depression Denies: Hx Bipolar Disorder, Hx Dementia, Hx Post Traumatic Stress Disorder, Hx Schizophrenia Traumatic Medical History: Denies: Hx Fractures Infectious Medical History: Denies: Hx HIV Past Surgical History: Reports: Hx Orthopedic Surgery - R foot. Denies: Hx Appendectomy, Hx Bowel Surgery, Hx Section, Hx Cholecystectomy, Hx Colostomy, Hx Coronary Artery Bypass Graft, Hx Gastric Bypass Surgery, Hx Herniorrhaphy, Hx Hysterectomy, Hx Mastectomy, Hx Pacemaker, Hx Tonsillectomy, Hx Tubal Ligation - Immunizations Hx Diphtheria, Pertussis, Tetanus Vaccination: Yes Hx Pneumococcal Vaccination: 11/20/12 Physical Exam - Vital signs Vitals: Temp Pulse Resp BP Pulse Ox 97.7 F 62 17 118/63 95 03/20/19 00:38 03/20/19 00:38 03/20/19 00:38 03/20/19 00:38 03/20/19 00:38 Course - Vital Signs Vital signs: Temp Pulse Resp BP Pulse Ox 97.7 F 62 17 118/63 95 03/20/19 00:38 03/20/19 00:38 03/20/19 00:38 03/20/19 00:38 03/20/19 00:38 Procedures - Laceration/Wound Repair Right Head Wound length (cm): 2 Wound's Depth, Shape: Linear, Other - into subcutaneous tissues Laceration pre-procedure: Sterile PPE donned, Shur-Clens applied Anesthetic type: 1% Lidocaine w/epi Volume Anesthetic (mLs): 2 Wound explored: Clean Irrigated w/ Saline (mLs): 150 Wound Repaired With: [place] Number of Sutures: 3 Layer Closure?: No Complications: No Discharge - Discharge Clinical Impression: Closed head injury Qualifiers: Encounter type: initial encounter Qualified Code(s): S09.90XA - Unspecified injury of head, initial encounter Laceration of scalp Qualifiers: Encounter type: initial encounter Qualified Code(s): S01.01XA - Laceration without foreign body of scalp, initial encounter Condition: Stable Disposition: HOME, SELF-CARE Instructions: Laceration Care ([facility]) Additional Instructions: Please follow-up in 7 days to have your krupa removed this can be done either in the emergency department, or at your primary care physician's office. Do not scrub the wound, you may wash her hair with soap and water, and pat gently to dry. Referrals: GIL HADDAD MD [Primary Care Provider] - Follow up in 1 week
[2019-03-20] MEDS ORDERED: LIDOCAINE 1%/EPINEPHRINE INJ 20 ML VIAL INJ ONE (03:29)
--- NOTE | 2019-03-20 04:27 | RADIOLOGY REPORT (SQ) ---
EXAM DESCRIPTION: CT HEAD WITHOUT IV CONTRAST COMPLETED DATE/TME: 03/20/2019 03:28 CLINICAL HISTORY: 73 years, Female, fall, head injury COMPARISON: EXAM: CT head without contrast. INDICATION: Fall, pain. TECHNIQUE: Contiguous axial CT images of the brain. Intravenous contrast: Absent. DLP 1043 mGy-cm. This exam was performed according to our departmental dose-optimization program, which includes automated exposure control, adjustment of the mA and/or kV according to patient size and/or use of iterative reconstruction technique. COMPARISON: 11/12/15. FINDINGS: Subcutaneous: Soft tissue swelling along the right parietal scalp No acute intracranial hemorrhage. No midline shift. No mass effect. Ventricles: No hydrocephalus. Horton-white differentiation preserved. Paranasal sinuses/mastoid air cells: Visualized portions are aerated. Bones/orbits: Visualized portions are unremarkable. IMPRESSION: 1. No CT evidence of acute intracranial hemorrhage. TECHNIQUE: Images stored on PACS. All CT scanners at this facility use dose modulation, iterative reconstruction, and/or weight based dosing when appropriate to reduce radiation dose to as low as reasonably achievable (ALARA). [facility]: Dose Right [facility]: CareDose [facility]: Dose Right [facility]: Teradose 4D [facility]: [employer] LIMITATIONS: None. FINDINGS: IMPRESSION: TECHNICAL DOCUMENTATION: Quality ID # [id number]: Final reports with documentation of one or more dose reduction techniques (e.g., Automated exposure control, adjustment of the mA and/or kV according to patient size, use of iterative reconstruction technique) copyright 2011 [employer]- All Rights Reserved
--- NOTE | 2019-03-20 04:31 | RADIOLOGY REPORT (SQ) ---
EXAM DESCRIPTION: CT CERVICAL SPINE WITHOUT IV CONTRAST COMPLETED DATE/TME: 03/20/2019 03:28 CLINICAL HISTORY: 73 years Female, fall, head injury Comparison: None. Technique: No contrast. Coronal and sagittal reformat. This exam was performed according to our departmental dose-optimization program, which includes automated exposure control, adjustment of the mA and/or kV according to patient size and/or use of iterative reconstruction technique.[facility]: Dose Right [facility]: CareDose [facility]: Dose Right [facility]: Teradose 4D [facility]: [employer] LIMITATIONS: None Findings: Moderate-severe left C6 foraminal stenosis, moderate asymmetric disc bulge-osteophyte complex, left more than right and spondylosis. Mild left C5 foraminal stenosis due to mild spondylosis. Mild dextroconvexity at the cervicothoracic junction. Normal alignment. Normal curvature. No fracture. Normal vertebral heights. No significant bony spinal or foraminal canal compromise. Partially imaged nuchal soft tissues, inferior cranium, and upper thorax appear otherwise grossly intact. IMPRESSION: No acute findings. Moderate to severe chronic left C6 foraminal stenosis.
[2019-03-20 04:49] VITALS: BP 120/65
== END 2019-03-20 05:01 | disposition home or self-care (01) ==
LOC: ER 00:38
DX: S01.01XA Laceration without foreign body of scalp, initial encounter (principal); W19.XXXA Unspecified fall, initial encounter; W22.03XA Walked into furniture, initial encounter; Y93.89 Activity, other specified; Y92.008 Other place in unspecified non-institutional (private) residence as the place of occurrence of the external cause; I10 Essential (primary) hypertension; R53.1 Weakness; Z88.1 Allergy status to other antibiotic agents; Z88.8 Allergy status to other drugs, medicaments and biological substances; Z88.2 Allergy status to sulfonamides
CPT/HCPCS: 70450; 72125; 12001; J3490; 99283